=== PATIENT | female | born 1995 | race Caucasian/White ===

== ENCOUNTER → 2019-02-22 07:05 | Outpatient (CLI) | payer OTHER, SELFPAY ==
[2019-02-22 08:03] LABS: Add Manual Diff / Slide Review NO; Basophils Absolute Auto 100 /uL (0-100); Basophils Percent Auto 1.1 % (0-2); Eosinophils Absolute Auto 500 /uL (0-450); Eosinophils Percent Auto 5.8 % (2-4); Hematocrit 43.3 % (36-46); Hemoglobin 14.8 g/dL (12.0-16.0); Lymphocytes Absolute Auto 2700 /uL (1100-4500); Lymphocytes Percent Auto 30.5 % (25-40); Mean Corpuscular HGB Conc 34.3 % (30-36); Mean Corpuscular Hemoglobin 29.5 PG (26-34); Mean Corpuscular Volume 86.2 fL (80-100); Monocytes Absolute Auto 700 /uL (0-900); Monocytes Percent Auto 8.2 % (3-14); Neutrophils Absolute Auto 4900 /uL (1500-7000); Neutrophils Percent Auto 54.4 % (50-75); Platelet Count 346 X10^3/uL (150-400); Red Blood Cell Count 5.02 X10^6/uL (4.0-5.2); Red Cell Distribution Width 14.2 % (11.6-14.8)
[2019-02-22 08:34] LABS: Alanine Aminotransferase 55 IU/L (9-52); Albumin 4.7 g/dL (3.5-5.0); Albumin Globulin Ratio 1.3 (1.0-2.8); Alkaline Phosphatase 82 U/L (38-126); Aspartate Aminotransferase 43 IU/L (14-36); BUN Creatinine Ratio 18.6 (6-22); Bilirubin Total 0.5 mg/dL (0.2-1.3); Blood Urea Nitrogen 13 mg/dL (7-17); Carbon Dioxide 25 mmol/L (22-32); Chloride 102 mmol/L (98-107); Estimated Glomerular Filt Rate > 60.0 mL/min (>60); Globulin 3.5 g/dL (1.7-4.1); Glucose 88 mg/dL (70-100); HEMOLYSIS < 15 (0-50); Potassium 3.9 mmol/L (3.4-5.1); Sodium 138 mmol/L (137-145); Total Protein 8.2 g/dL (6.3-8.2)
[2019-02-22 08:46] LABS: Free T3, Triiodothyronine Free 4.49 pg/mL (2.77-5.27); Free T4, Direct Thyroxine 1.09 ng/dL (0.78-2.19)
[2019-02-22 09:00] LABS: TSH w/ Reflex to FT4 2.08 uIU/mL (0.47-4.68)
--- NOTE | 2019-02-22 12:15 | DI.US.S_ITS ---
PROCEDURE: US THYROID INDICATIONS: Thyroid region nodule above the level of the right thyroid lobe where a palpable lump below the mandible level is seen. TECHNIQUE: Real-time scanning was performed of the thyroid gland, with image documentation. COMPARISON: [facility], MR, BRAIN WITHOUT CONTRAST, 01/11/2018, 19:18. FINDINGS: Right: The right thyroid lobe measures 1.4 x 1.7 x 5.0 cm and contains no discrete internal mass. The soft tissues above the level of the right thyroid lobe and below the level of the horizontal ramus of the right mandible contain a lobulated cystic structure, measuring up to 1.2 x 2.6 x 2.4 cm. This is located centered 4 cm cephalad to the upper pole of the right thyroid lobe and just inferior to the right submandibular gland. Left: The left thyroid lobe measures 1.2 x 1.5 x 4.7 cm, and contains a 2 x 3 x 4 mm cyst is smoothly marginated and has a small amount of peripheral adjacent calcification. Isthmus: The isthmus is normal in thickness at 2 mm and there is a very small nodule measuring 2 x 3 x 3 mm there is cystic, hypoechoic and smoothly marginated. IMPRESSION: 1. The thyroid gland bilaterally is normal in size as is the isthmus. 2. 2 small cystic structures are present within the parenchyma of the thyroid one located at the isthmus and the second located at the lateral aspect of the lower third of the left thyroid lobe. None of these represent areas of current clinical concern, and appear to represent benign small cysts requiring no followup. 3. There is current clinical concern is a lobulated cystic structure within the soft tissues of the right neck above the level of the thyroid gland and just below the level of the right submandibular gland. This measures up to 1.2 x 2.6 x 2.4 cm, and does not demonstrate abnormal intra-or marginal increased vascularity. This may represent a thyroglossal duct cyst. Dictated by: Anshul Tapia M.D. on 02/22/2019 at 14:49 Approved by: Anshul Tapia M.D. on 02/22/2019 at 14:56
== END ==
PROVIDERS: Visit Provider Nurse Practitioner
DX: E04.1 Nontoxic single thyroid nodule (principal); R49.9 Unspecified voice and resonance disorder
CPT/HCPCS: 36415; 76536; 80053; 84439; 84443; 84481; 85025

== ENCOUNTER → 2019-04-23 09:17 | Outpatient (CLI) | payer OTHER, SELFPAY ==
[2019-04-23 10:31] LABS: Add Manual Diff / Slide Review NO; Basophils Absolute Auto 100 /uL (0-100); Basophils Percent Auto 0.8 % (0-2); Eosinophils Absolute Auto 1000 /uL (0-450); Eosinophils Percent Auto 11.5 % (2-4); Hematocrit 43.5 % (36-46); Hemoglobin 14.7 g/dL (12.0-16.0); Lymphocytes Absolute Auto 2900 /uL (1100-4500); Lymphocytes Percent Auto 32.8 % (25-40); Mean Corpuscular HGB Conc 33.9 % (30-36); Mean Corpuscular Hemoglobin 30.2 PG (26-34); Mean Corpuscular Volume 89.2 fL (80-100); Monocytes Absolute Auto 800 /uL (0-900); Neutrophils Absolute Auto 4000 /uL (1500-7000); Neutrophils Percent Auto 45.9 % (50-75); Platelet Count 283 X10^3/uL (150-400); Red Blood Cell Count 4.87 X10^6/uL (4.0-5.2); Red Cell Distribution Width 15.8 % (11.6-14.8); White Blood Cell Count 8.7 X10^3/uL (4.5-11.0)
[2019-04-23 10:41] LABS: Alanine Aminotransferase 131 IU/L (9-52); Albumin 4.2 g/dL (3.5-5.0); Albumin Globulin Ratio 1.2 (1.0-2.8); Alkaline Phosphatase 69 U/L (38-126); Aspartate Aminotransferase 46 IU/L (14-36); BUN Creatinine Ratio 22.9 (6-22); Bilirubin Total 0.5 mg/dL (0.2-1.3); Blood Urea Nitrogen 16 mg/dL (7-17); Calcium 9.4 mg/dL (8.4-10.2); Carbon Dioxide 27 mmol/L (22-32); Chloride 103 mmol/L (98-107); Estimated Glomerular Filt Rate > 60.0 mL/min (>60); Globulin 3.4 g/dL (1.7-4.1); Glucose 80 mg/dL (70-100); HEMOLYSIS < 15 (0-50); Potassium 3.5 mmol/L (3.4-5.1); Sodium 138 mmol/L (137-145); Total Protein 7.6 g/dL (6.3-8.2)
[2019-04-23 10:54] LABS: Free T4, Direct Thyroxine 1.32 ng/dL (0.78-2.19)
[2019-04-23 11:08] LABS: Thyroid Stimulating Hormone 2.98 uIU/mL (0.47-4.68)
== END ==
PROVIDERS: Visit Provider Nurse Practitioner
DX: E04.1 Nontoxic single thyroid nodule (principal); Z86.39 Personal history of other endocrine, nutritional and metabolic disease
CPT/HCPCS: 36415; 80053; 84439; 84443; 84481; 85025

== ENCOUNTER → 2019-06-10 10:47 | Outpatient (CLI) | payer OTHER, SELFPAY ==
[2019-06-10 13:29] LABS: Alanine Aminotransferase 14 IU/L (9-52); Albumin 4.2 g/dL (3.5-5.0); Albumin Globulin Ratio 1.4 (1.0-2.8); Alkaline Phosphatase 54 U/L (38-126); Aspartate Aminotransferase 22 IU/L (14-36); Bilirubin Total 0.6 mg/dL (0.2-1.3); Bilirubin Unconjugated 0.5 mg/dL (0.0-1.1); HEMOLYSIS < 15 (0-50); Total Protein 7.2 g/dL (6.3-8.2)
== END ==
PROVIDERS: Visit Provider Family Medicine
DX: G43.109 Migraine with aura, not intractable, without status migrainosus (principal)
CPT/HCPCS: 36415; 80076

== ENCOUNTER 2022-08-15 01:57 | Emergency (ER) | payer OTHER, SELFPAY ==
[2022-08-15] VITALS (7 sets, daily range): BP systolic 107–142; BP diastolic 71–75; PULSE 74–101; RESP 16; TEMP 36.8; O2SAT 96–100
[2022-08-15] MEDS: SODIUM CHLORIDE 0.9% 1,000 ML 1000 ML IV (02:23)
[2022-08-15] MEDS: ONDANSETRON 4 MG/2 ML INJ IV (02:24)
--- NOTE | 2022-08-15 02:49 | ED.HA ---
HPI - Headache General Chief Complaint: Headache Stated Complaint: migraine and numbness in arms Time Seen by Provider: 08/15/22 02:09 Mode of arrival: Ambulatory History of Present Illness HPI Narrative: Patient is a healthy 26-year-old female history of migraine headaches presenting today with headache. She has a little labioplasty done 3 days ago. She states they gave her shot of Toradol to help pain and discomfort prior to the procedure. It was done with lidocaine only no general anesthetic she says during the procedure she started to developed headache. It has progressed. She has some left arm numbness. No weakness. She said this is atypical of her migraine headaches. Typically her migraine headaches always present aura, she is able to take a certain medication is within 2 hours which helped with her headaches. Triptans do not work for her. She has been taking ibuprofen and Tylenol without any relief. She has some mild nausea no vomiting. No neck pain fevers or chills. She denies any weakness. She does feel like her left arm is a little bit numb. His all the things are atypical for her. Related Data Home Medications Medication Instructions Recorded Confirmed magnesium 500 mg PO DAILY 05/02/19 05/02/19 Allergies Allergy/AdvReac Type Severity Reaction Status Date / Time Sulfa (Sulfonamide Allergy Unknown RASH/HIVES Verified 11/19/19 13:39 Antibiotics) egg AdvReac Unknown Verified 11/19/19 13:39 latex [LATEX] AdvReac Unknown rash Verified 11/19/19 13:39 Review of Systems Review of Systems Narrative: GENERAL: Denies chills, fatigue, malaise, fever, sweats, travel HEENT: Denies sinus pain, ear pain, sore throat, difficulty swallowing, neck pain RESPIRATORY: Denies dyspnea, cough, wheezing, hemoptysis, sputum. CARDIOVASCULAR: Denies chest pain, palpitations, orthopnea, edema GASTROINTESTINAL: Denies nausea, vomiting, abdominal pain, diarrhea, constipation, melena. : Denies dysuria, frequency, incontinence, hematuria, urinary retention, flank pain. MUSCULOSKELETAL: Denies weakness, joint pain, or bony pain SKIN: No rash, no erythema, no pruritus NEUROLOGIC: See HPI PSYCHIATRIC: No concerning psychosocial issues. 12 point review of systems is negative except for those stated above and HPI Patient History Social History (Reviewed 08/15/22 @ 03:22 by KRISTEN Menard Smoking Status: Never smoker Smoking Status: Never smoker Substance Use Type: does not use Exam Initial Vital Signs Initial Vital Signs: Vital Signs Pulse Rate 90 08/15/22 02:02 Pulse Oximetry 98 08/15/22 02:02 GENERAL: Alert well-appearing 26-year-old female and in no acute distress. HEENT: Head atraumatic,EOMI, pupils reactive, face symmetric, no meningeal signs CARDIOVASCULAR: Regular rate and rhythm without murmurs, rubs or gallops. RESPIRATORY: Breath sounds equal bilaterally, no wheezes rales or rhonchi. ABDOMEN: Soft, nontender. Normoactive bowel sounds all 4 quadrants. No guarding or rebound. EXTREMITIES: Normal range of motion, no clubbing or edema. Neurovascularly intact NEUROLOGICAL: Alert and oriented x4.Normal gait and speech. Proofer Prepress strength equal bilaterally moving both such lower extremities SKIN: Warm, dry, no laceration, no petechiae, no rashes or lesions. Scores NIH Stroke Scale Level of Conciousness: Alert, keenly responsive Ask month/age: Answers both questions correctly. Open/close eyes, close hand: Performs both tasks correctly Best gaze horizontal: Normal Visual robison: No visual loss Facial palsy: Normal symetrical movement Left arm drift: No drift for full 10 sec Right arm drift: No drift for full 10 sec Left leg drift: No drift for full 5 sec Right leg drift: No drift for full 5 sec Limb ataxia: Absent Sensory on face/arms/legs: Mild to moderate sensory loss, can tell touch Best language: No aphasia, normal Dysarthria: Normal Extinction or inattention: No abnormality Total NIH Stroke scale score: 1 Course Orders Ordered: ED Orders 08/15/22 02:17 CBC Auto Diff [Complete Blood Count AUTO DIFF] Stat CMP [Comprehensive Metabolic Panel] Stat 08/15/22 03:04 CT head/brain wo con Stat 08/15/22 04:01 Urine Culture Stat Urine Microscopic Stat Discontinued Medications Sodium Chloride (Normal Saline 0.9%) 1,000 mls @ 1,000 mls/hr IV BOLUS ONE Stop: 08/15/22 03:08 Last Infusion: 08/15/22 03:43 Dose: 0 mls/hr Documented By: Admin: 08/15/22 02:23 Dose: 1,000 mls/hr Documented By: DAVI Ondansetron HCl (Ondansetron 4 Mg/2 Ml Inj) 4 mg IV NOW ONE Stop: 08/15/22 02:10 Last Admin: 08/15/22 02:24 Dose: 4 mg Documented By: DAVI Vital Signs Vital signs: Vital Signs - 8 hr 08/15/22 02:09 08/15/22 02:02 08/15/22 02:30 Temperature 98.2 F Pulse Rate 82 90 101 H Respiratory Rate 16 Blood Pressure 142/75 H Pulse Oximetry 100 98 96 Oxygen Delivery Method Room Air 08/15/22 03:00 08/15/22 03:30 08/15/22 04:00 Temperature Pulse Rate 91 H 79 74 Respiratory Rate Blood Pressure Pulse Oximetry 99 98 97 Oxygen Delivery Method 08/15/22 04:19 Temperature Pulse Rate 78 Respiratory Rate 16 Blood Pressure 107/71 Pulse Oximetry 97 Oxygen Delivery Method Room Air MDM - Headache Lab Data Result diagrams: 08/15/22 02:17 08/15/22 02:17 Labs: Lab Results 08/15/22 08/15/22 08/15/22 Range/Units 02:17 02:17 04:01 WBC 10.6 (4.5-11.0) X10^3/uL RBC 4.85 (4.0-5.2) X10^6/uL Hgb 15.0 (12.0-16.0) g/dL Hct 44.3 (36-46) % MCV 91.4 (80-100) fL MCH 31.0 (26-34) PG MCHC 33.9 (30-36) % RDW 12.7 (11.6-14.8) % Plt Count 379 (150-400) X10^3/uL Neut % (Auto) 56.5 (50-75) % Lymph % (Auto) 30.0 (25-40) % [place] % (Auto) 8.1 (3-14) % Eos % (Auto) 4.6 H (2-4) % Baso % (Auto) 0.8 (0-2) % Neut # (Auto) 6000 (4038-8771) /uL Lymph # (Auto) 3200 (6513-4991) /uL [place] # (Auto) 900 (0-900) /uL Eos # (Auto) 500 H (0-450) /uL Baso # (Auto) 100 (0-100) /uL Sodium 139 (137-145) mmol/L Potassium 3.8 (3.4-5.1) mmol/L Chloride 103 (98-107) mmol/L Carbon Dioxide 25 (22-32) mmol/L BUN 16 (7-17) mg/dL Creatinine 0.93 (0.52-1.04) mg/dL Estimated GFR > 60 (>60) mL/min BUN/Creatinine Ratio 17.2 (6-22) Glucose 103 H (70-100) mg/dL Calcium 9.8 (8.4-10.2) mg/dL Total Bilirubin 0.2 (0.2-1.3) mg/dL AST 24 (14-36) IU/L ALT 23 (<35) IU/L Alkaline Phosphatase 65 (38-126) U/L Total Protein 8.0 (6.3-8.2) g/dL Albumin 4.3 (3.5-5.0) g/dL Globulin 3.7 (1.7-4.1) g/dL Albumin/Globulin Ratio 1.2 (1.0-2.8) Urine RBC 1-5/hpf (0-5/HPF) Urine WBC 1-5/hpf (0-5/HPF) Ur Squamous Epith Cells 0-1 /hpf (0-5/HPF) Urine Bacteria Occasional (0-1) (None) Ur Culture Indicated? Specimen cultured Urine Dip Bedside Urine Glucose Negative Bedside Urine Bilirubin - Negative Bedside Urine Ketone - Negative Urine Specific [place] 1.015 Bedside Urine Occult Blood +/- Bedside Urine pH 5.5 Bedside Urine Protein - Negative Bedside Urine Urobilinogen - Negative Bedside Urine Nitrite - Negative Bedside Urine Leukocytes - Negative Esterase Imaging Data CT scan - head: Radiologist's Impression: Preliminary report no acute intracranial process MDM Narrative Medical decision making narrative: Patient is is a very informed 26-year-old female who has many questions. I have done my best to explain to her in detail her results and presentation. At this time I believe she is having a slightly atypical migraine headache for her. She typically gets an aura which she did not this time. She does have some left-sided symptoms when she has her migraine headaches now she is having a little bit of numbness and tingling sensation. She really has no focal deficits. Head CT is negative blood work is reassuring. She has absolutely no fever sign of meningitis. Symptoms have been ongoing for number of days. She was offered medications here in the ED but at this time declined, mostly due to the medications previously not helping. she was seen by headache and migraine specialist previously at 8:20 p.m. no true that she is going to the now. Discharge Plan Departure Patient Disposition: Home Clinical Impression: Headache Instructions: DI for Headache Activity Restrictions/Additional Instructions: *You have been diagnosed with headache *What to do: At this time his the atypical headache for you. I recommend he stay hydrated. Head CT and blood work are overall reassuring. *Continue to take medications as directed Motrin 600 mg every 6 hours if needed for kwav-[id number]-wkcuymea pain Tylenol 1000 mg every 6 hours if needed for mrev-cz-[id number] pain do not exceed more than 4000 mg in 24 hours *Follow up with your primary care provider in 2-3 days or call [phone] Please see your migraine/headache specialist/neurologist call them tomorrow *Return to ER if you should have worsening headache numbness tingling weakness or any new, worsening or concerning symptoms Prescriptions: No Action magnesium 500 mg PO DAILY Visit Report Forms: Patient Portal/API
--- NOTE | 2022-08-15 03:04 | DI.CT.S_ITS ---
PROCEDURE: CT HEAD/BRAIN WO CON INDICATIONS: headache with left arm numnbess change ni migraine pattern TECHNIQUE: Noncontrast 4.5 mm thick angled axial sections acquired from the foramen magnum to the vertex, with coronal and sagittal reformats. For radiation dose reduction, the following was used: automated exposure control, adjustment of mA and/or kV according to patient size. COMPARISON: None. FINDINGS: Image quality: Excellent. CSF spaces: Basal cisterns are patent. No extra-axial fluid collections. Ventricles are normal in size and shape. Brain: No midline shift. No intracranial masses or hemorrhage. Love-white matter interface is normal. Skull and face: Calvarium and visualized facial bones are intact, without suspicious lesions. Sinuses: Visualized sinuses and mastoids are clear. IMPRESSION: CT head without acute intracranial abnormalities. No mass or mass effect. Dictated by: Hermilo Sainz M.D. on 08/15/2022 at 7:02 Approved by: Hermilo Sainz M.D. on 08/15/2022 at 7:04
[2022-08-15 03:10] LABS: Add Manual Diff / Slide Review NO; Basophils Absolute Auto 100 /uL (0-100); Basophils Percent Auto 0.8 % (0-2); Eosinophils Absolute Auto 500 /uL (0-450); Eosinophils Percent Auto 4.6 % (2-4); Hematocrit 44.3 % (36-46); Lymphocytes Absolute Auto 3200 /uL (1100-4500); Mean Corpuscular HGB Conc 33.9 % (30-36); Mean Corpuscular Volume 91.4 fL (80-100); Monocytes Absolute Auto 900 /uL (0-900); Monocytes Percent Auto 8.1 % (3-14); Neutrophils Absolute Auto 6000 /uL (1500-7000); Neutrophils Percent Auto 56.5 % (50-75); Platelet Count 379 X10^3/uL (150-400); Red Blood Cell Count 4.85 X10^6/uL (4.0-5.2); Red Cell Distribution Width 12.7 % (11.6-14.8); White Blood Cell Count 10.6 X10^3/uL (4.5-11.0)
[2022-08-15 03:15] LABS: Alanine Aminotransferase 23 IU/L (<35); Albumin 4.3 g/dL (3.5-5.0); Albumin Globulin Ratio 1.2 (1.0-2.8); Alkaline Phosphatase 65 U/L (38-126); Aspartate Aminotransferase 24 IU/L (14-36); BUN Creatinine Ratio 17.2 (6-22); Bilirubin Total 0.2 mg/dL (0.2-1.3); Blood Urea Nitrogen 16 mg/dL (7-17); Calcium 9.8 mg/dL (8.4-10.2); Carbon Dioxide 25 mmol/L (22-32); Chloride 103 mmol/L (98-107); Estimated Glomerular Filt Rate > 60 mL/min (>60); Globulin 3.7 g/dL (1.7-4.1); Glucose 103 mg/dL (70-100); HEMOLYSIS < 15 (0-50); Potassium 3.8 mmol/L (3.4-5.1); Sodium 139 mmol/L (137-145)
[2022-08-15 04:19] LABS: Bacteria Urine Occasional (0-1); Culture Indicated Urine Specimen Cultured; RBC Urine 1-5/HPF (0-5/HPF); Squamous Epithelial Cell Urine 0-1 /HPF (0-5/HPF); WBC Urine 1-5/HPF (0-5/HPF)
== END 2022-08-15 04:22 | disposition home or self-care (01) ==
PROVIDERS: Emergency Provider Emergency Medicine
DX: R51.9 Headache, unspecified (principal); R29.701 NIHSS score 1
CPT/HCPCS: 36415; 70450; 80053; 81003; 81015; 85025; 87086; 96361; 96374; 99284; J2405

== ENCOUNTER 2022-08-19 07:56 | Emergency (ER) | payer OTHER, SELFPAY ==
[2022-08-19] VITALS (8 sets, daily range): BP systolic 103–112; BP diastolic 57–79; PULSE 71–90; RESP 16; TEMP 37.5; O2SAT 96–100; BMI 22.8
--- NOTE | 2022-08-19 09:04 | ED_ITS ---
HPI - Headache General Chief Complaint: Headache Stated Complaint: migraine pain t-7 vomiting Time Seen by Provider: 08/19/22 08:50 Source: patient Mode of arrival: Ambulatory Limitations: no limitations History of Present Illness HPI Narrative: Patient is a 26-year-old female. Does have a history of migraine headaches. Is under the care of a neurologist. Does have medications that she takes at home when she gets a headache. Does not take it daily medication. She had a procedure at the end of last week and received Toradol. She thinks that it may have been the Toradol that caused the headache that she presents with today. She was seen here in the emergency department a couple days ago. Had a workup and head CT that was all unremarkable. She did not receive any medications. Discharged home. She returns today for continued headache. She states that is both sides. Also feels like it is stabbing in the back of her head. No tingling in her upper lower extremities. No chest pain. No shortness of breath. Is having some vomiting. Headache that she is had for the past week is somewhat atypical for her normal migraines. She has been using her medications and also Tylenol and ibuprofen without any improvement. Related Data Home Medications Medication Instructions Recorded Confirmed magnesium 500 mg PO DAILY 05/02/19 05/02/19 Allergies Allergy/AdvReac Type Severity Reaction Status Date / Time Sulfa (Sulfonamide Allergy Unknown RASH/HIVES Verified 11/19/19 13:39 Antibiotics) egg AdvReac Unknown Verified 11/19/19 13:39 latex [LATEX] AdvReac Unknown rash Verified 11/19/19 13:39 Review of Systems Constitutional Constitutional: Reports system reviewed and no additional complaints, except as documented ENT Ears, Nose, Mouth, and Throat: Reports system reviewed and no additional complaints, except as documented Cardiovascular Cardiovascular: Reports system reviewed and no additional complaints, except as documented Respiratory Respiratory: Reports system reviewed and no additional complaints, except as documented Gastrointestinal Gastrointestinal: Reports system reviewed and no additional complaints, except as documented Musculoskeletal Musculoskeletal: Reports system reviewed and no additional complaints, except as documented Integumentary/Breasts Skin/Breast: Reports system reviewed and no additional complaints, except as documented Neurologic Neurologic: Reports system reviewed and no additional complaints, except as documented Hematologic/Lymphatic On Anticoagulants: No Allergic/Immunologic Allergic/Immunologic: Reports system reviewed and no additional complaints, except as documented Patient History Social History Smoking Status: Never smoker Smoking Status: Never smoker Substance Use Type: does not use Exam Initial Vital Signs Initial Vital Signs: Vital Signs Temperature 99.5 F 08/19/22 08:13 Pulse Rate 90 08/19/22 08:13 Respiratory Rate 16 08/19/22 08:13 Blood Pressure 112/79 08/19/22 08:13 Pulse Oximetry 100 08/19/22 08:13 Oxygen Delivery Method 08/19/22 08:13 HENMO Head: normal to inspection and normocephalic Resp Effort & Inspection: normal respiratory effort Auscultation: clear to auscultation bilaterally Cardio Rate: regular rate Rhythm: regular rhythm GI Inspection: normal to inspection Skin General: no rashes or lesions noted Neuro General: patient alert, patient awake, patient oriented x3 and moves all extremities Cranial Nerves: CN's II-XI intact bilaterally Cognition: normal cognition Speech: speech normal Sensory Exam: no sensory deficits noted Extrem General: normal to inspection and capillary refill normal Psych Appearance: grossly normal and well kempt Course Orders Ordered: Discontinued Medications Diphenhydramine HCl (Diphenhydramine 50 Mg/Ml Vial) 25 mg IV NOW ONE Stop: 08/19/22 09:05 Last Admin: 08/19/22 09:48 Dose: 25 mg Documented By: BT Haloperidol (Haloperidol 5 Mg/Ml Vial) 2.5 mg IV NOW ONE Stop: 08/19/22 11:52 Last Admin: 08/19/22 12:04 Dose: 2.5 mg Documented By: AT Sodium Chloride (Normal Saline 0.9%) 1,000 mls @ 1,000 mls/hr IV BOLUS ONE Stop: 08/19/22 10:03 Last Infusion: 08/19/22 11:12 Dose: 0 mls/hr Documented By: Admin: 08/19/22 09:48 Dose: 1,000 mls/hr Documented By: BT Methylprednisolone (Methylprednisolone 125 Mg/2 Ml Vial) 125 mg IV NOW ONE Stop: 08/19/22 11:52 Last Admin: 08/19/22 12:04 Dose: 125 mg Documented By: AT Metoclopramide HCl (Metoclopramide 10 Mg/2 Ml Inj) 10 mg IV NOW ONE Stop: 08/19/22 09:05 Last Admin: 08/19/22 09:48 Dose: 10 mg Documented By: BT Vital Signs Vital signs: Vital Signs - 8 hr 08/19/22 10:59 08/19/22 11:30 08/19/22 11:33 Pulse Rate 74 80 71 Blood Pressure 103/60 108/57 L Pulse Oximetry 98 97 97 Oxygen Delivery Method Room Air Room Air 08/19/22 12:00 08/19/22 12:00 08/19/22 12:30 Pulse Rate 76 Blood Pressure 107/57 L 112/68 Pulse Oximetry 97 Oxygen Delivery Method Room Air 08/19/22 12:30 08/19/22 13:00 08/19/22 13:30 Pulse Rate 82 82 84 Blood Pressure 110/72 Pulse Oximetry 97 96 96 Oxygen Delivery Method Room Air Room Air MDM - Headache Lab Data Attestation: I reviewed the patient's lab results. Result diagrams: 08/19/22 08:45 08/19/22 08:45 Labs: Lab Results 08/19/22 08/19/22 08/19/22 Range/Units 08:45 08:45 08:45 WBC 11.0 (4.5-11.0) X10^3/uL RBC 4.49 (4.0-5.2) X10^6/uL Hgb 14.1 (12.0-16.0) g/dL Hct 40.3 (36-46) % MCV 89.8 (80-100) fL MCH 31.5 (26-34) PG MCHC 35.1 (30-36) % RDW 12.7 (11.6-14.8) % Plt Count 330 (150-400) X10^3/uL Neut % (Auto) 77.1 H (50-75) % Lymph % (Auto) 14.6 L (25-40) % [place] % (Auto) 5.6 (3-14) % Eos % (Auto) 1.9 L (2-4) % Baso % (Auto) 0.8 (0-2) % Neut # (Auto) 8500 H (7306-7067) /uL Lymph # (Auto) 1600 (1137-7620) /uL [place] # (Auto) 600 (0-900) /uL Eos # (Auto) 200 (0-450) /uL Baso # (Auto) 100 (0-100) /uL Sodium 138 (137-145) mmol/L Potassium 3.8 (3.4-5.1) mmol/L Chloride 103 (98-107) mmol/L Carbon Dioxide 26 (22-32) mmol/L BUN 15 (7-17) mg/dL Creatinine 0.98 (0.52-1.04) mg/dL Estimated GFR > 60 (>60) mL/min BUN/Creatinine Ratio 15.3 (6-22) Glucose 107 H (70-100) mg/dL Calcium 9.4 (8.4-10.2) mg/dL Serum , Qual Negative (Negative) MDM Narrative Medical decision making narrative: Seen here a couple days ago. Had workup to include head CT which was unremarkable. Patient reports improvement of symptoms but not resolution with the above-stated therapies. I have low suspicion for meningitis. No indication for repeat head CT. No indication for lumbar puncture. She states she felt comfortable going home. Was also given steroids to try to help reduce the recurrence of the headache. She was recommended to follow-up with primary doctor and also Neurology. She expressed understanding and agreement. Discharge Plan Departure Patient Disposition: Home Clinical Impression: Migraine Instructions: DI for Migraine Activity Restrictions/Additional Instructions: Continue to take all of your medications as directed. Contact your primary doctor for follow-up. Return to the emergency department for any new or worsening symptoms. Prescriptions: No Action magnesium 500 mg PO DAILY Referrals: Miscellaneous,[facility] [Primary Care Provider] - Visit Report Forms: Patient Portal/API
[2022-08-19 09:11] LABS: Add Manual Diff / Slide Review NO; Basophils Absolute Auto 100 /uL (0-100); Basophils Percent Auto 0.8 % (0-2); Eosinophils Absolute Auto 200 /uL (0-450); Eosinophils Percent Auto 1.9 % (2-4); Hematocrit 40.3 % (36-46); Hemoglobin 14.1 g/dL (12.0-16.0); Lymphocytes Absolute Auto 1600 /uL (1100-4500); Lymphocytes Percent Auto 14.6 % (25-40); Mean Corpuscular HGB Conc 35.1 % (30-36); Mean Corpuscular Hemoglobin 31.5 PG (26-34); Mean Corpuscular Volume 89.8 fL (80-100); Monocytes Absolute Auto 600 /uL (0-900); Monocytes Percent Auto 5.6 % (3-14); Neutrophils Absolute Auto 8500 /uL (1500-7000); Neutrophils Percent Auto 77.1 % (50-75); Platelet Count 330 X10^3/uL (150-400); Red Blood Cell Count 4.49 X10^6/uL (4.0-5.2); Red Cell Distribution Width 12.7 % (11.6-14.8)
[2022-08-19 09:35] LABS: Pregnancy Test Serum,Qual Negative (Negative)
[2022-08-19 09:43] LABS: BUN Creatinine Ratio 15.3 (6-22); Blood Urea Nitrogen 15 mg/dL (7-17); Calcium 9.4 mg/dL (8.4-10.2); Carbon Dioxide 26 mmol/L (22-32); Chloride 103 mmol/L (98-107); Estimated Glomerular Filt Rate > 60 mL/min (>60); Glucose 107 mg/dL (70-100); HEMOLYSIS < 15 (0-50); Potassium 3.8 mmol/L (3.4-5.1); Sodium 138 mmol/L (137-145)
[2022-08-19] MEDS: diphenhydrAMINE 50 MG/ML VIAL 25 MG IV (09:48)
[2022-08-19] MEDS: METOCLOPRAMIDE 10 MG/2 ML INJ IV (09:48)
[2022-08-19] MEDS: SODIUM CHLORIDE 0.9% 1,000 ML 1000 ML IV (09:48)
--- NOTE | 2022-08-19 11:32 | PC.NURSE ---
Pt reports improvement in pain while the fluids were running, fluids complete and pt reports pain is returning.
[2022-08-19] MEDS: HALOPERIDOL 5 MG/ML VIAL 2.5 MG IV (12:04)
[2022-08-19] MEDS: methylPREDNISolone 125 MG/2 ML VIAL IV (12:04)
--- NOTE | 2022-08-19 13:27 | PC.NURSE ---
Pt reports some improvement since last medications, reports head pain continues across forehead and left lateral side. Requesting next steps, updated on wait.
== END 2022-08-19 13:50 | disposition home or self-care (01) ==
PROVIDERS: Emergency Provider Emergency Medicine
DX: G43.909 Migraine, unspecified, not intractable, without status migrainosus (principal)
CPT/HCPCS: 80048; 84703; 85025; 96361; 96374; 96375; 99283; 99284; J1200; J1630; J2765; J2930

== ENCOUNTER → 2022-12-02 17:23 | Outpatient (CLI) | payer OTHER, SELFPAY ==
[2022-12-02 18:13] LABS: Albumin 4.6 g/dL (3.5-5.0); BUN Creatinine Ratio 19.1 (6-22); Blood Urea Nitrogen 18 mg/dL (7-17); Calcium 9.8 mg/dL (8.4-10.2); Carbon Dioxide 19 mmol/L (22-32); Chloride 101 mmol/L (98-107); Estimated Glomerular Filt Rate > 60 mL/min (>60); Glucose 123 mg/dL (70-100); HEMOLYSIS 17 (0-50); Phosphorous 2.3 mg/dL (2.5-4.5); Potassium 4.3 mmol/L (3.4-5.1); Sodium 135 mmol/L (137-145)
== END ==
PROVIDERS: Referring Provider Student in an Organized Health Care Education/Training Program; Visit Provider Student in an Organized Health Care Education/Training Program
DX: E28.2 Polycystic ovarian syndrome (principal)
CPT/HCPCS: 36415; 80069

== ENCOUNTER → 2023-01-27 17:33 | Outpatient (CLI) | payer OTHER, SELFPAY ==
[2023-01-27 20:35] LABS: Albumin 4.2 g/dL (3.5-5.0); BUN Creatinine Ratio 22.4 (6-22); Blood Urea Nitrogen 17 mg/dL (7-17); Calcium 9.1 mg/dL (8.4-10.2); Carbon Dioxide 22 mmol/L (22-32); Chloride 103 mmol/L (98-107); Estimated Glomerular Filt Rate > 60 mL/min (>60); Glucose 103 mg/dL (70-100); HEMOLYSIS 35 (0-50); Phosphorous 1.3 mg/dL (2.5-4.5); Sodium 135 mmol/L (137-145)
== END ==
PROVIDERS: Referring Provider Student in an Organized Health Care Education/Training Program; Visit Provider Student in an Organized Health Care Education/Training Program
DX: E28.2 Polycystic ovarian syndrome (principal)
CPT/HCPCS: 36415; 80069

== ENCOUNTER → 2023-02-06 12:52 | Outpatient (CLI) | payer OTHER, SELFPAY ==
--- NOTE | 2023-02-06 12:53 | DI.US.S_ITS ---
PROCEDURE: US THYROID INDICATIONS: THYROID FULLNESS TECHNIQUE: Real-time scanning was performed of the thyroid gland, with image documentation. COMPARISON: [facility], US, US THYROID, 02/22/2019, 12:25. FINDINGS: Right: Thyroid lobe measures 5.9 X 1.6 X 1.6 cm, and is homogeneous in echotexture. Left: Thyroid lobe measures 5.3 X 1.7 X 1.3 cm, and is homogenous in echotexture. Isthmus: 4.3 mm thick. Nodule number: 1 Location: Right isthmus Size: 0.5 x 0.4 x 0.2 cm. Composition: Solid Echogenicity: Hypoechoic Shape: wider than tall. Margins: Smooth Echogenic foci: None Total points: 3 ACR TI-RADS category: 3 There is a 2.7 x 1.7 x 1.1 cm predominantly hypoechoic complex appearing cystic mass along the right anterior aspect of the mandible. Some internal vascularity is noted. On the comparison ultrasound dated February 22, 2019 this measured 2.4 x 1.2 x 2.6 cm and had a more cystic appearance; however, internal vascularity of the septations was visualized on the prior study as well. This corresponds as palpated. IMPRESSION: 1. T3 right isthmus thyroid nodule. No further follow-up needed given size. 2. Lobulated complex mass adjacent to the right submandibular gland as above. This is slightly decreased in size when compared with the prior study and has a more complex appearance on the current exam. If further characterization is warranted, soft tissue CT of the neck with contrast could be used. Additionally, if clinically indicated, this is likely amenable to ultrasound-guided percutaneous biopsy. ACR TI-RADS definitions and recommendations: TI-RADS 1 (benign): 0 points. FNA not needed. TI-RADS 2 (not suspicious): 2 points. FNA not needed. TI-RADS 3 (mildly suspicious): 3 points. * FNA if 2.5 cm or larger, follow up if 1.5 cm or larger (at 1, 3, and 5 years). TI-RADS 4 (moderately suspicious): 4-6 points. * FNA if 1.5 cm or larger, follow up if 1 cm or larger (at 1, 2, 3, and 5 years). TI-RADS 5 (highly suspicious): 7 points or more. * FNA if 1 cm or larger, follow up if 0.5 cm or larger (every year for 5 years). Dictated by: Melisa Harris M.D. on 02/06/2023 at 17:28 Approved by: Melisa Harris M.D. on 02/06/2023 at 17:32
== END ==
PROVIDERS: Referring Provider Student in an Organized Health Care Education/Training Program; Visit Provider Student in an Organized Health Care Education/Training Program
DX: E07.89 Other specified disorders of thyroid (principal); E04.1 Nontoxic single thyroid nodule
CPT/HCPCS: 76536

== ENCOUNTER → 2023-02-27 11:15 | Outpatient (CLI) | payer OTHER, SELFPAY ==
[2023-02-27 18:50] LABS: Free T4, Direct Thyroxine 1.36 ng/dL (0.78-2.19)
[2023-02-27 21:49] LABS: Thyroid Stimulating Hormone 1.86 uIU/mL (0.47-4.68)
== END ==
PROVIDERS: Referring Provider Internal Medicine Endocrinology, Diabetes & Metabolism; Visit Provider Internal Medicine Endocrinology, Diabetes & Metabolism
DX: E04.1 Nontoxic single thyroid nodule (principal)
CPT/HCPCS: 36415; 84439; 84443

== ENCOUNTER → 2023-03-24 14:57 | Outpatient (CLI) | payer OTHER, SELFPAY ==
--- NOTE | 2023-03-24 | DI.CT.S_ITS ---
PROCEDURE: CT SOFT TISSUE NECK W CON INDICATIONS: NECK MASS TECHNIQUE: After the administration of intravenous contrast, 3.0 mm axial sections acquired from the sella to the aortic arch. 3 mm thick coronal and sagittal reformats were generated. For radiation dose reduction, the following was used: automated exposure control. Palpable abnormality was marked with skin BB marker in the right mid neck COMPARISON: None. FINDINGS: Image quality: Excellent. Lymph nodes: No enlarged lymph nodes seen throughout the neck. Vessels: Visualized vasculature appears patent. Neck spaces: The oropharynx, nasopharynx, and pharynx demonstrate no mucosal lesions. The vocal cords, false vocal cords, pyriform sinuses, epiglottis, vallecula, and tongue base all appear normal. Extramucosal spaces appear unremarkable. Glands: The parotid and submandibular glands appear normal. Thyroid gland unremarkable. Miscellaneous: Visualized brain and orbits appear normal. Lung apices appear clear. Superficial soft tissues appear normal. Bones: No suspicious bony lesions. Visualized sinuses and mastoids appear unremarkable. IMPRESSION: Normal CT neck with contrast. No CT abnormality corresponds with a skin marker Incidental debris in both external auditory canals can be correlated with direct visualization Approved by: Farhan Justin M.D. on 03/24/2023 at 18:22
== END ==
PROVIDERS: Referring Provider Student in an Organized Health Care Education/Training Program; Visit Provider Student in an Organized Health Care Education/Training Program
DX: R22.1 Localized swelling, mass and lump, neck (principal)
CPT/HCPCS: 70491; Q9967